=== PATIENT | male | born 1965 | race Caucasian/White ===

== ENCOUNTER 2021-03-28 10:44 | Outpatient (REF) | payer OTHER, SELFPAY | END 2021-03-28 10:45 | disposition home or self-care (01) | LOC: HO.HOSX 10:44 | PROVIDERS: Visit Provider Orthopaedic Surgery | DX: Z13.89 Encounter for screening for other disorder (principal) ==

== ENCOUNTER 2021-06-30 12:12 | Outpatient (REF) | payer OTHER, SELFPAY ==
--- NOTE | ~2021-06-30 | XR_ITS ---
EXAMINATION: XR ELBOW, LEFT CLINICAL INFORMATION: Pain in unspecified elbow. COMPARISON: None TECHNIQUE: AP, lateral, and oblique views of the left elbow. FINDINGS: There is no fracture, malalignment, or joint effusion. There are no degenerative arthritic changes. XR/XR elbow LT 2V IMPRESSION: Normal left elbow.
--- NOTE | ~2021-06-30 | XR_ITS ---
EXAMINATION: XR SHOULDER, LEFT CLINICAL INFORMATION: Pain in unspecified shoulder. COMPARISON: None TECHNIQUE: AP, scapular Y, and axillary views of the left shoulder. FINDINGS: The left reverse total shoulder arthroplasty appears to be in grossly anatomic alignment. The junction of the glenoid prosthesis in the underlying glenoid is not as well seen. I cannot exclude some osteolysis in this region. The humeral prosthesis is unchanged in position. The previously noted periprosthetic fracture is less conspicuous but there is some increase in external bridging callus formation along the proximal humerus. XR/XR shoulder LT min 2V IMPRESSION: 1. 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 2. Decreased conspicuity of the periprosthetic fracture in the proximal humerus but increase in bridging external callus.
== END 2021-06-30 12:13 | disposition home or self-care (01) ==
LOC: HO.HOSX 12:12
PROVIDERS: Visit Provider Orthopaedic Surgery
DX: M77.12 Lateral epicondylitis, left elbow (principal); Z96.612 Presence of left artificial shoulder joint
CPT/HCPCS: 20605; 73030; 73070; 99212; J1100

== ENCOUNTER 2024-04-21 12:33 | Outpatient (AMB) | payer OTHER, SELFPAY ==
--- NOTE | 2024-04-21 12:35 | MHC.OFFVIS ---
Intake Visit Reasons: OV-LT Shoulder pain-follow up Intake Note: Luis is a 58 year old male who presents today for a follow up of his left shoulder. left TSA 09/10/2018. Allergies metronidazole [From FLAGYL] Allergy (Severe, Verified 06/30/21 13:06) RASH/ITCHING/SWELLING HPI HPI OV-LT Shoulder pain-follow up: Details: Luis is a 58 year old male who presents today for a follow up of his left shoulder. left TSA 09/10/2018. The lugs initially had a fracture which was treated with ORIF in 2018. This went on to fail and was revised to reverse total shoulder. He returns today stating that over the past 6 months he has had worsening pain. He describes difficulty abducting his arm and pain with minimal motion. He denies any recent injury. Denies fevers and chills. Physical Exam Const Other: Luis appears to have lost significant weight. He is alert and oriented x3. Extrem Other: I can passively abduct his arm to 75 degrees but he has minimal active abduction. Results Reviewed Results Reviewed: Results of his radiographs demonstrate loss of humeral fixation with loss of cortical bone. This is seems significantly worsened compared to prior radiographs. Assessment & Plan Assessment & Plan (1) Status post reverse total replacement of left shoulder: Code(s): Z96.612 - Presence of left artificial shoulder joint Category: Surgical Plan: This is a 50-year-old who is 5 years status post reverse total shoulder arthroplasty. He has loss of fixation of the humeral component. He has severe pain and he can not abduct his shoulder. Passively I can range his shoulder with pain. I recommend revision of his arthroplasty. I will have our nurse navigator contact him. I reviewed with him the risks, benefits alternatives of surgery including, but not limited to, the risk of infection, loss of function, nerve injury, need for further surgery, failure of fixation as well as medical complications associated with surgery. I ordered the CT scan I will order a full set of labs to rule out infection. Rule out have our nurse navigator call him and begin the preoperative clearance process. Orders: Orders XR shoulder LT min 2V Today M25.519 - Pain in unspecified shoulder Coding Level of Care Code Est Pt Level 4 (42012) Diagnoses Status post reverse total replacement of left shoulder Z96.612
== END 2024-04-21 13:04 | disposition home or self-care (01) ==
PROVIDERS: Visit Provider Orthopaedic Surgery
DX: M25.512 Pain in left shoulder (principal); Z96.612 Presence of left artificial shoulder joint
CPT/HCPCS: 99214

== ENCOUNTER 2024-04-21 12:33 | Outpatient (REF) | payer OTHER, SELFPAY | END 2024-04-21 12:34 | disposition home or self-care (01) | LOC: HO.HOSX 12:33 | PROVIDERS: Visit Provider Orthopaedic Surgery | DX: M25.512 Pain in left shoulder (principal); Z96.612 Presence of left artificial shoulder joint | CPT/HCPCS: 73030; 99212 ==